=== PATIENT | female | born 1945 | race Caucasian/White ===

== ENCOUNTER 2017-01-11 09:46 | Outpatient (CLI) | payer OTHER ==
--- NOTE | 2017-01-11 10:53 | DIAGNOSTIC IMAGING REPORT ---
PROCEDURE: MG BILATERAL SCREENING W/CAD INDICATION: Screening. Family history of breast carcinoma (mother). TECHNIQUE: Bilateral CC and MLO digital views. COMPARISON: Compared to left mammogram and left breast ultrasound (09/30/2015), and screening mammogram studies (05/20/2015, 05/14/2014. FINDINGS: Computer-aided detection applied. Mildly dense with a few dystrophic calcifications. No change. IMPRESSION: 1. Negative mammogram. RESULT CODE: 1- Negative. A. A negative report should not delay biopsy if a dominant or clinically suspicious mass is present. 10-15% of cancers are not identified by x-ray. B. A negative report may reinforce clinical impression. C. Adenosis and dense breasts may obscure an underlying neoplasm. D. False positive reports average 6-10%. E.. A yearly screening mammogram is recommended. A reminder letter will be scheduled.
== END 2017-01-11 23:00 ==
LOC: MAM SRH 09:46
DX: Z12.31 Encounter for screening mammogram for malignant neoplasm of breast (principal)

== ENCOUNTER 2017-02-16 05:17 | Emergency (ER) | payer OTHER ==
--- NOTE | 2017-02-16 06:31 | ED NURSING NOTES ---
Clinical Report - Nurses [facility] [address] [place] [address] 02/16/2017 5:17 Patient: WILLIAMS COOK TRIAGE Triage time 05:23. Chief Complaint: PELVIC PAIN and PAINFUL URINATION. --05:38 Karyna Knight R.N. 05:23 02/16/17. BP: 193/75. HR: 99. RR: 18. O2 saturation: 93% on room air. Temp: 98.2 F. Pain level now: 05/10. --05:38 Karyna Knight R.N. Weight: 81.6 kg. Height/Length: 63 inches. BMI: 31.9. --05:39 Karyna Knight R.N. Medications Atorvastatin Calcium Oral (Tablet 40 mg) 1 tablet, daily. --05:32 Karyna Knight R.N. Hydrochlorothiazide Oral (Tablet 12.5 mg) 1 tablet, daily. Ibuprofen Oral. --05:33 Karyna Knight R.N. Ibuprofen Oral (Tablet 800 mg) 1 tablet, as needed. Lisinopril Oral. --05:33 Karyna Knight R.N. Lisinopril Oral (Tablet 40 mg) 1 tablet, daily. Omeprazole Oral. --05:33 Karyna Knight R.N. Aller eduardo. --05:34 Karyna Knight R.N. Aspir-81 Oral. Omeprazole Oral (Tablet Delayed Release 20 mg) 1 tablet, daily. --05:34 Karyna Knight R.N. Aspir-81 Oral (Tablet Delayed Release 81 mg) 1 tablet. Centrum Silver Adult 50+ Oral. --05:35 Karyna Knight R.N. Allergies Levaquin. --05:31 Karyna Knight R.N. Macrobid. --05:32 Karyna Knight R.N. Niacin. --05:32 Karyna Knight R.N. History Arrived by private vehicle. This started last night. Onset was abrupt. Symptoms are constant and still present (at about 2200 PM). She has had cramping, burning, aching abdominal pain (- still present). The pain is described as located in the suprapubic region. She has had moderate hematuria (- still present). PAST MEDICAL HX: Hypertension. SOCIAL HX: Former smoker, end date 1986. No alcohol use or drug use. --05:38 Karyna Knight R.N. PROBLEMS: Hypertension. Hypercholesterolemia. Gastroesophageal Reflux Disease. --05:36 Karyna Knight R.N. ADDITIONAL SURGERIES: Bunion. Carpal Tunnel Surgery. --05:36 Karyna Knight R.N. PHYSICAL ASSESSMENT Ambulatory to room. GENERAL / NEURO / PSYCH: Alert. Oriented X 4. Appears in pain. GI / : Burning during and after urination that is associated with urgency and frequency. Hematuria noted (since 2200 last night). --05:40 Karyna Knight R.N. NURSING PROGRESS NOTES Two patient identifiers checked. Call light placed in reach. Side rails up x 1. --05:41 Karyna Knight R.N. Patient ready for evaluation- chart flagged. --05:41 Karyna Knight R.N. 05:45 late entry -. Patient ID band checked for patient name and birthdate: patient confirmed. Clean catch urine collected with return of red-colored urine; sample sent to lab. Specimen labeled in the presence of the patient (collected, labeled, and sent by MANGO Troncoso at time of triage). --06:39 Jazlyn Tran R.N. DISPOSITION / DISCHARGE Condition at departure: unchanged and stable. No learning barriers present. Discharge instructions provided and reviewed with the patient. Reviewed medication(s) side effects, precautions, dosing and course information. Prescription(s) given to the patient. Patient verbalized understanding. Written instructions provided in [place]. The patient was discharged home. She left the Emergency Department ambulatory and via private vehicle. --06:37 Jazlyn Tran R.N. 06:36 02/16/17. BP: 141/69. HR: 93. RR: 16. O2 saturation: 96% on room air. Temp: deferred. Ga-Garcia pain scale: 4/10. --06:37 Jazlyn Tran R.N. Locked/Released at 02/16/2017 6:39 by Jazlyn Tran R.N.
--- NOTE | 2017-02-16 06:31 | ED CLINICAL REPORT ---
Clinical Report - Physicians/Mid Levels [facility] [address] [place] [address] 02/16/2017 5:17 Patient: WILLIAMS COOK Time Seen: 05:28. Arrived- By private vehicle. Historian- patient. HISTORY OF PRESENT ILLNESS Chief Complaint: DYSURIA. This started last night and still present. It was gradual in onset and has been intermittent and waxing/waning. The symptoms are described as moderate. The patient has had mild, crampy suprapubic pelvic pain, described as "pain". No flank pain. She has had pain with urination and urgency of urination. The patient has had urinary frequency and hematuria. REVIEW OF SYSTEMS The patient has had chills. No fever, sweats, calf pain, chest pain or cough. No difficulty breathing, pedal edema, palpitations, abdominal pain or constipation. No diarrhea, nausea or vomiting. All systems otherwise negative, except as recorded above. SOCIAL HISTORY Former smoker. No alcohol use or drug use. FAMILY HISTORY No significant family medical history. ADDITIONAL NOTES The nursing notes have been reviewed. PHYSICAL EXAM Vital Signs: 02/16/2017 05:23 BP: 193/75. HR: 99. RR: 18. O2 saturation: 93%. Temp: 98.2 F. Pain level now: 7/10. Have been reviewed. Appearance: Alert. No acute distress. ENT: Pharynx normal. Neck: Neck supple. CVS: Heart sounds normal. Respiratory: No respiratory distress. Breath sounds normal. Abdomen: Soft. Mild tenderness in the suprapubic area. Bowel sounds normal. No organomegaly. No mass. Back: Normal external inspection. No CVA tenderness. Skin: Skin warm and dry. Normal skin color. Normal skin turgor. Extremities: Extremities nontender. No lower extremity edema. LABS, X-RAYS, AND EKG Laboratory Tests: UA-Culture if indicated: (JELENA: 02/16/2017 05:39) ( MsgRcvd 02/16/2017 05:59) Final results Test Result Flag Units (Reference) URINE COLOR RED URINE APPEARANCE CLEAR URINE GLUCOSE NEGATIVE (NEGATIVE) URINE BILIRUBIN 2+ (NEGATIVE) URINE KETONE NEGATIVE (NEGATIVE) URINE SPECIFIC GRAVITY <= 1.005 L (1.010-1.030) URINE PH 5.0 (5.0-8.0) URINE PROTEIN 3+ (NEGATIVE) URINE UROBILINOGEN 0.2 EU/dL (0.2-1.0) URINE NITRITE POSITIVE (NEGATIVE) URINE BLOOD 3+ (NEGATIVE) URINE LEUK ESTERASE POSITIVE (NEGATIVE) URINE RBC >100 rbc/hpf (0-1) URINE WBC 25-50 wbc/hpf (0-1) URINE EPITHELIAL CELLS 0-1 EPI/hpf (0-5) URINE BACTERIA MODERATE (2+ TO 3+) (NONE SEEN) URINE COMMENT CULTURE INDICATED URINE CULTURES ARE SET-UP BASED ON THE FOLLOWING CRITERIA:POSITIVE NITRITEPOSITIVE LEUKOCYTE ESTERASEGREATER THAN 10 WHITE BLOOD CELLSMODERATE (2+) OR GREATER BACTERIA . PROGRESS AND PROCEDURES Course of Care: Patient is stable. Patient/family counseled. Old medical records ordered. Old records unavailable. Disposition: Discharged. Condition: stable. CLINICAL IMPRESSION Hematuria Acute urinary tract infection with cystitis. INSTRUCTIONS Drink plenty of fluids. Warnings: GENERAL WARNINGS: Return or contact your physician immediately if your condition worsens or changes unexpectedly, if not improving as expected, or if other problems arise. Your Current Medications: CONTINUE TAKING THE FOLLOWING MEDICATIONS: Aller eduardo*. Aspir-81 Oral : Tablet Delayed Release 81 mg, 1 tablet. Aspir-81 Oral. Atorvastatin Calcium Oral : Tablet 40 mg, 1 tablet daily. Centrum Silver Adult 50+ Oral. Hydrochlorothiazide Oral : Tablet 12.5 mg, 1 tablet daily. Ibuprofen Oral : Tablet 800 mg, 1 tablet, prn. Ibuprofen Oral. Lisinopril Oral : Tablet 40 mg, 1 tablet daily. Omeprazole Oral : Tablet Delayed Release 20 mg, 1 tablet daily. Prescription Medications: Pyridium 200 mg: take 1 orally every 8 hours as needed for urinary problems. Dispense six (6). No refills. Substitution is permissible. Cephalexin 500mg: take 1 tab orally every 6 hours for 7 days. No refills Understanding of the discharge instructions verbalized by patient. (Electronically signed by Brock Vyas MD 02/24/2017 1:15)
--- NOTE | 2017-02-16 06:31 | ED ORDER SUMMARY ---
..... Patient: WILLIAMS COOK OrderSheet [facility] VisitID: [id number] [address] [place] [address] 71y, F Registration Date/Time: 02/16/2017 ORDER SHEET Weight: 81.6 kg Allergies: Levaquin, Macrobid, Niacin GENERAL ORDERS: UA-Culture if indicated Urgent (05:44 02/16/2017 Weston Riley per protocol) (Ack 6:06 Emerita) (6:09 Irina) MEDICATION ORDERS: IV FLUIDS: ORDER SHEET NOTES: [Electronically signed by Jazlyn Tran R.N. (06:39 02/16/2017)] [Electronically signed by Brock Vyas MD (01:15 02/24/2017)] [Electronically locked/signed by Jazlyn Tran R.N. (06:39 02/16/2017)]
--- NOTE | 2017-02-16 06:31 | ED ORDER SUMMARY ---
..... Patient: WILLIAMS COOK OrderSheet [facility] VisitID: [id number] [address] [place] [address] 71y, F Registration Date/Time: 02/16/2017 ORDER SHEET Weight: 81.6 kg Allergies: Levaquin, Macrobid, Niacin GENERAL ORDERS: UA-Culture if indicated Urgent (05:44 02/16/2017 Weston Riley per protocol) (Ack 6:06 Emerita) (6:09 Irina) MEDICATION ORDERS: IV FLUIDS: ORDER SHEET NOTES: [Electronically signed by Jazlyn Tran R.N. (06:39 02/16/2017)] [Electronically signed by Brock Vyas MD (01:15 02/24/2017)] [Electronically locked/signed by Jazlyn Tran R.N. (06:39 02/16/2017)]
--- NOTE | 2017-02-16 06:31 | ED NURSING NOTES ---
Clinical Report - Nurses [facility] [address] [place] [address] 02/16/2017 5:17 Patient: WILLIAMS COOK TRIAGE Triage time 05:23. Chief Complaint: PELVIC PAIN and PAINFUL URINATION. --05:38 Karyna Knight R.N. 05:23 02/16/17. BP: 193/75. HR: 99. RR: 18. O2 saturation: 93% on room air. Temp: 98.2 F. Pain level now: 05/10. --05:38 Karyna Knihgt R.N. Weight: 81.6 kg. Height/Length: 63 inches. BMI: 31.9. --05:39 Karyna Knight R.N. Medications Atorvastatin Calcium Oral (Tablet 40 mg) 1 tablet, daily. --05:32 Karyna Knight R.N. Hydrochlorothiazide Oral (Tablet 12.5 mg) 1 tablet, daily. Ibuprofen Oral. --05:33 Karyna Knight R.N. Ibuprofen Oral (Tablet 800 mg) 1 tablet, as needed. Lisinopril Oral. --05:33 Karyna Knight R.N. Lisinopril Oral (Tablet 40 mg) 1 tablet, daily. Omeprazole Oral. --05:33 Karyna Knight R.N. Aller eduardo. --05:34 Karyna Knight R.N. Aspir-81 Oral. Omeprazole Oral (Tablet Delayed Release 20 mg) 1 tablet, daily. --05:34 Karyna Knight R.N. Aspir-81 Oral (Tablet Delayed Release 81 mg) 1 tablet. Centrum Silver Adult 50+ Oral. --05:35 Karyna Knight R.N. Allergies Levaquin. --05:31 Karyna Knight R.N. Macrobid. --05:32 Karyna Knight R.N. Niacin. --05:32 Karyna Knight R.N. History Arrived by private vehicle. This started last night. Onset was abrupt. Symptoms are constant and still present (at about 2200 PM). She has had cramping, burning, aching abdominal pain (- still present). The pain is described as located in the suprapubic region. She has had moderate hematuria (- still present). PAST MEDICAL HX: Hypertension. SOCIAL HX: Former smoker, end date 1986. No alcohol use or drug use. --05:38 Karyna Knight R.N. PROBLEMS: Hypertension. Hypercholesterolemia. Gastroesophageal Reflux Disease. --05:36 Karyna Knight R.N. ADDITIONAL SURGERIES: Bunion. Carpal Tunnel Surgery. --05:36 Karyna Knight R.N. PHYSICAL ASSESSMENT Ambulatory to room. GENERAL / NEURO / PSYCH: Alert. Oriented X 4. Appears in pain. GI / : Burning during and after urination that is associated with urgency and frequency. Hematuria noted (since 2200 last night). --05:40 Karyna Knight R.N. NURSING PROGRESS NOTES Two patient identifiers checked. Call light placed in reach. Side rails up x 1. --05:41 Karyna Knight R.N. Patient ready for evaluation- chart flagged. --05:41 Karyna Knight R.N. 05:45 late entry -. Patient ID band checked for patient name and birthdate: patient confirmed. Clean catch urine collected with return of red-colored urine; sample sent to lab. Specimen labeled in the presence of the patient (collected, labeled, and sent by MANGO Troncoso at time of triage). --06:39 Jazlyn Tran R.N. DISPOSITION / DISCHARGE Condition at departure: unchanged and stable. No learning barriers present. Discharge instructions provided and reviewed with the patient. Reviewed medication(s) side effects, precautions, dosing and course information. Prescription(s) given to the patient. Patient verbalized understanding. Written instructions provided in [place]. The patient was discharged home. She left the Emergency Department ambulatory and via private vehicle. --06:37 Jazlyn Tran R.N. 06:36 02/16/17. BP: 141/69. HR: 93. RR: 16. O2 saturation: 96% on room air. Temp: deferred. Ga-Garcia pain scale: 4/10. --06:37 Jazlyn Tran R.N. Locked/Released at 02/16/2017 6:39 by Jazlyn Tran R.N.
--- NOTE | 2017-02-24 01:15 | ED DISCHARGE INSTRUCTIONS ---
Patient: WILLIAMS COOK General Instructions [facility] VisitID: [id number] [place] [address] 71y, F Registration Date/Time: 02/16/2017 Hematuria Acute urinary tract infection with cystitis. INSTRUCTIONS Drink plenty of fluids. Warnings: GENERAL WARNINGS: Return or contact your physician immediately if your condition worsens or changes unexpectedly, if not improving as expected, or if other problems arise. Your Current Medications: CONTINUE TAKING THE FOLLOWING MEDICATIONS: Aller eduardo*. Aspir-81 Oral : Tablet Delayed Release 81 mg, 1 tablet. Aspir-81 Oral. Atorvastatin Calcium Oral : Tablet 40 mg, 1 tablet daily. Centrum Silver Adult 50+ Oral. Hydrochlorothiazide Oral : Tablet 12.5 mg, 1 tablet daily. Ibuprofen Oral : Tablet 800 mg, 1 tablet, prn. Ibuprofen Oral. Lisinopril Oral : Tablet 40 mg, 1 tablet daily. Omeprazole Oral : Tablet Delayed Release 20 mg, 1 tablet daily. Prescription Medications: Pyridium 200 mg: take 1 orally every 8 hours as needed for urinary problems. Dispense six (6). No refills. Substitution is permissible. Cephalexin 500mg: take 1 tab orally every 6 hours for 7 days. No refills Understanding of the discharge instructions verbalized by patient. ADDITIONAL INFORMATION Bladder Infection,Female (Adult) A bladder infection ("cystitis" or "UTI") usually causes a constant urge to urinate and a burning when passing urine. Urine may be cloudy, smelly or dark. There may be pain in the lower abdomen. A bladder infection occurs when bacteria from the vaginal area enter the bladder opening (urethra). This can occur from sexual intercourse, wearing tight clothing, dehydration and other factors. Home Care: Drink lots of fluids (at least 6-8 glasses a day, unless you must restrict fluids for other medical reasons). This will force the medicine into your urinary system and flush the bacteria out of your body. Avoid sexual intercourse until your symptoms are gone. Avoid caffeine, alcohol and spicy foods. These can irritate the bladder. A bladder infection is treated with antibiotics. You may also be given Pyridium (generic = phenazopyridine) to reduce the burning sensation. This medicine will cause your urine to become a bright orange color. The orange urine may stain clothing. You may wear a pad or panty-liner to protect clothing. Preventing Future Infections: Always wipe from front to back after a bowel movement. Keep the genital area clean and dry. Drink plenty of fluids each day to avoid dehydration. Both sexual partners should wash before intercourse. Urinate right after intercourse to flush out the bladder. Wear cotton underwear and cotton-lined panty hose; avoid tight-fitting pants. If you are on control pills and are having frequent bladder infections, discuss with your doctor. Follow Up: Return to this facility or see your doctor if ALL symptoms are not gone after three days of treatment. Get Prompt Medical Attention if any of the following occur: Fever of 100.4F (38C) or higher, or as directed by your healthcare provider No improvement by the third day of treatment Increasing back or abdominal pain Repeated vomiting; unable to keep medicine down Weakness, dizziness or fainting Vaginal discharge Pain, redness or swelling in the labia (outer vaginal area) Blood In The Urine Blood in the urine ("hematuria") has many possible causes. If it occurs after an injury (such as a car accident or fall), it is most often a sign of bruising to the kidney or bladder. Common medical causes of blood in the urine include urinary tract infection, kidney stone, inflammation, tumors, or certain other diseases of the kidney or bladder. Menstruation can cause blood to appear in the urine sample, although it is not coming from the urinary tract. If only a trace amount of blood is present, it will show up on the urine test, even though the urine may be yellow and not pink or red. This may occur with any of the above conditions, as well as heavy exercise or high fever. In this case, your doctor may want to repeat the urine test on another day. This will show if the blood is still present. If so, then other tests can be done to find out the cause. Home Care: If your urine does not appear bloody (pink, brown or red) then you do not need to restrict your activity in any way. If you can see blood in your urine, rest and avoid heavy exertion until your next exam. Do not use aspirin or anti-inflammatory medicine like ibuprofen (Motrin, Advil) or naproxen (Naprosyn, Aleve). These thin the blood and may increase bleeding. Follow Up with your doctor or as advised by our staff. If you were injured and had blood in your urine, you should have a repeat urine test in 1-2 days. Contact your doctor or return to this facility for this test. [NOTE: A radiologist will review any X-rays that were taken. We will notify you of any new findings that may affect your care.] Get Prompt Medical Attention if any of the following occur: Bright red blood or blood clots in the urine (if a new symptom) Weakness, dizziness or fainting New groin, abdominal or back pain Fever of 100.4F (38C) or higher, or as directed by your healthcare provider Repeated vomiting Bleeding from nose, gums or easy bruising Phenazopyridine Hydrochloride Oral tablet What is this medicine? PHENAZOPYRIDINE (fen az oh PEER i mela) is a pain reliever. It is used to stop the pain, burning, or discomfort caused by infection or irritation of the urinary tract. This medicine is not an antibiotic. It will not cure a urinary tract infection. How should I use this medicine? Take this medicine by mouth with a glass of water. Follow the directions on the prescription label. Take after meals. Take your doses at regular intervals. Do not take your medicine more often than directed. Do not skip doses or stop your medicine early even if you feel better. Do not stop taking except on your doctor's advice. Talk to your acute care surgeon regarding the use of this medicine in children. Special care may be needed. What side effects may I notice from receiving this medicine? Side effects that you should report to your doctor or health daycare provider as soon as possible: allergic reactions like skin rash, itching or hives, swelling of the face, lips, or tongue blue or purple color of the skin difficulty breathing fever less urine unusual bleeding, bruising unusual tired, weak vomiting yellowing of the eyes or skin Side effects that usually do not require medical attention (report to your doctor or health daycare provider if they continue or are bothersome): dark urine headache stomach upset What may interact with this medicine? Interactions are not expected. What if I miss a dose? If you miss a dose, take it as soon as you can. If it is almost time for your next dose, take only that dose. Do not take double or extra doses. Where should I keep my medicine? Keep out of the reach of children. Store at room temperature between 15 and 30 degrees C (59 and 86 degrees F). Protect from light and moisture. Throw away any unused medicine after the expiration date. What should I tell my health care provider before I take this medicine? They need to know if you have any of these conditions: [id number] dehydrogenase (G6PD) deficiency kidney disease an unusual or allergic reaction to phenazopyridine, other medicines, foods, dyes, or preservatives or trying to get breast-feeding What should I watch for while using this medicine? Tell your doctor or health daycare provider if your symptoms do not improve or if they get worse. This medicine colors body fluids red. This effect is harmless and will go away after you are done taking the medicine. It will change urine to an dark orange or red color. The red color may stain clothing. Soft contact lenses may become permanently stained. It is best not to wear soft contact lenses while taking this medicine. If you are diabetic you may get a false positive result for sugar in your urine. Talk to your health care provider. Cephalexin Monohydrate Oral tablet What is this medicine? CEPHALEXIN (sef a FILIBERTO in) is a cephalosporin antibiotic. It is used to treat certain kinds of bacterial infections It will not work for colds, flu, or other viral infections. How should I use this medicine? Take this medicine by mouth with a full glass of water. Follow the directions on the prescription label. This medicine can be taken with or without food. Take your medicine at regular intervals. Do not take your medicine more often than directed. Take all of your medicine as directed even if you think you are better. Do not skip doses or stop your medicine early. Talk to your acute care surgeon regarding the use of this medicine in children. While this drug may be prescribed for selected conditions, precautions do apply. What side effects may I notice from receiving this medicine? Side effects that you should report to your doctor or health daycare provider as soon as possible: allergic reactions like skin rash, itching or hives, swelling of the face, lips, or tongue breathing problems pain or trouble passing urine redness, blistering, peeling or loosening of the skin, including inside the mouth severe or watery diarrhea unusually weak or tired yellowing of the eyes, skin Side effects that usually do not require medical attention (report to your doctor or health daycare provider if they continue or are bothersome): gas or heartburn genital or anal irritation headache joint or muscle pain nausea, vomiting What may interact with this medicine? probenecid some other antibiotics What if I miss a dose? If you miss a dose, take it as soon as you can. If it is almost time for your next dose, take only that dose. Do not take double or extra doses. There should be at least 4 to 6 hours between doses. Where should I keep my medicine? Keep out of the reach of children. Store at room temperature between 59 and 86 degrees F (15 and 30 degrees C). Throw away any unused medicine after the expiration date. What should I tell my health care provider before I take this medicine? They need to know if you have any of these conditions: kidney disease stomach or intestine problems, especially colitis an unusual or allergic reaction to cephalexin, other cephalosporins, penicillins, other antibiotics, medicines, foods, dyes or preservatives or trying to get breast-feeding What should I watch for while using this medicine? Tell your doctor or health daycare provider if your symptoms do not begin to improve in a few days. Do not treat diarrhea with over the counter products. Contact your doctor if you have diarrhea that lasts more than 2 days or if it is severe and watery. If you have diabetes, you may get a false-positive result for sugar in your urine. Check with your doctor or health daycare provider. You have been given the following additional information: Bladder Infection, Female (Adult) Hematuria Phenazopyridine Hydrochloride Oral tablet Cephalexin Monohydrate Oral tablet (Electronically signed by Brock Vyas MD 02/24/2017 1:15)
--- NOTE | 2017-02-24 01:16 | ED MAR SUMMARY ---
..... Medication Administration Record [facility] [address] [place], [place] [id number] Patient: WILLIAMS COOK Meghan Visit ID: [id number] 71y, F Weight: 81.6 kg Height/Length: 63 in BMI: 31.9 ALLERGIES: Niacin, Macrobid, Levaquin
--- NOTE | 2017-02-24 01:16 | ED MAR SUMMARY ---
..... Medication Administration Record [facility] [address] [place], [place] [id number] Patient: WILLIAMS COOK Meghan Visit ID: [id number] 71y, F Weight: 81.6 kg Height/Length: 63 in BMI: 31.9 ALLERGIES: Niacin, Macrobid, Levaquin
--- NOTE | 2017-02-24 01:16 | ED MED RECONCILIATION SUMMARY ---
Patient: WILLIAMS COOK Medication Reconciliation Report [facility] VisitID: [id number] [place] [address] 71y, F Registration Date/Time: 02/16/2017 Weight: 81.6 kg Height/Length: 63 in. BMI: 31.9 ALLERGIES: Levaquin, Macrobid, Niacin The patient's Home Medications are listed below: CONTINUE TAKING THE FOLLOWING MEDICATIONS: Aller eduardo Aspir-81 Oral (81 mg) 1 tablet Aspir-81 Oral Atorvastatin Calcium Oral (40 mg) 1 tablet, daily Centrum Silver Adult 50+ Oral Hydrochlorothiazide Oral (12.5 mg) 1 tablet, daily Ibuprofen Oral (800 mg) 1 tablet Ibuprofen Oral Lisinopril Oral (40 mg) 1 tablet, daily Omeprazole Oral (20 mg) 1 tablet, daily THE FOLLOWING MEDICATIONS NEED TO BE RECONCILED: Lisinopril Oral Omeprazole Oral The source(s) of the original Home Medication information: Not obtained. The following Medications were given to the patient in the Emergency Department: None. The following Medications were prescribed to the patient: Pyridium 200 mg: take 1 orally every 8 hours as needed for urinary problems. Dispense six (6). No refills. Substitution is permissible. -- Brock Vyas MD Cephalexin 500mg: take 1 tab orally every 6 hours for 7 days. No refills -- Brock Vyas MD
--- NOTE | 2017-02-24 01:16 | ED MED RECONCILIATION SUMMARY ---
Patient: WILLIAMS COOK Medication Reconciliation Report [facility] VisitID: [id number] [place] [address] 71y, F Registration Date/Time: 02/16/2017 Weight: 81.6 kg Height/Length: 63 in. BMI: 31.9 ALLERGIES: Levaquin, Macrobid, Niacin The patient's Home Medications are listed below: CONTINUE TAKING THE FOLLOWING MEDICATIONS: Aller eduardo Aspir-81 Oral (81 mg) 1 tablet Aspir-81 Oral Atorvastatin Calcium Oral (40 mg) 1 tablet, daily Centrum Silver Adult 50+ Oral Hydrochlorothiazide Oral (12.5 mg) 1 tablet, daily Ibuprofen Oral (800 mg) 1 tablet Ibuprofen Oral Lisinopril Oral (40 mg) 1 tablet, daily Omeprazole Oral (20 mg) 1 tablet, daily THE FOLLOWING MEDICATIONS NEED TO BE RECONCILED: Lisinopril Oral Omeprazole Oral The source(s) of the original Home Medication information: Not obtained. The following Medications were given to the patient in the Emergency Department: None. The following Medications were prescribed to the patient: Pyridium 200 mg: take 1 orally every 8 hours as needed for urinary problems. Dispense six (6). No refills. Substitution is permissible. -- Brock Vyas MD Cephalexin 500mg: take 1 tab orally every 6 hours for 7 days. No refills -- Brock Vyas MD
== END 2017-02-16 06:34 | disposition home or self-care (01) ==
LOC: ED SRH 05:17
DX: N30.90 Cystitis, unspecified without hematuria (principal); R31.9 Hematuria, unspecified; I10 Essential (primary) hypertension; K21.9 Gastro-esophageal reflux disease without esophagitis; Z79.899 Other long term (current) drug therapy; Z79.82 Long term (current) use of aspirin
CPT/HCPCS: 90004; 90148; 90469